=== PATIENT | male | born 1995 | race Caucasian/White ===

== ENCOUNTER 2018-03-02 20:51 | Emergency (ER) | payer OTHER ==
[~2018-03-02 20:51] MED LIST: CETI10 PO; OMPR20CCR; OXYC-360 PO
[2018-03-02 21:17] VITALS: BP 149/79; PULSE 83; RESP 16; TEMP 97.8; O2SAT 100
--- NOTE | 2018-03-02 23:11 | PD ---
HPI Chief Complaint: Injury Time Seen by Provider: 22:54 Travel History International Travel<30 days: No Contact w/Intl Traveler<30days: No Traveled to known affect area: No History of Present Illness HPI Patient is a 22 year old male (right hand dominant) who presents to the ER with c/o of right hand pain. Patient reports that he punched a box today around 6pm as he was angry, reports that the box was full of porcelain. Reports "I think i broke my hand." Patient with no other c/o. PFSH Past Medical History ADHD: Yes Autoimmune Disease: No Cardiovascular Problems: No Developmental Delay: No Diminished Hearing: No Gastrointestinal Disorders: Yes (pyloric stenosis) Genitourinary: No Musculoskeletal: No Neurologic: Yes (ADHD) Psychiatric: No Respiratory: No Immunizations Current: Yes Seizures: Yes Past Surgical History Abdominal Surgery: Yes (pyloric stenosis) Cardiac Surgery: No Ear Surgery: No Endocrine Surgery: No Eye Surgery: No Genitourinary Surgery: No Gynecologic Surgery: No Neurologic Surgery: No Oral Surgery: No Thoracic Surgery: No Other Surgery: Yes (PYLORIC STENOSIS, BROKEN BONES L/R ARM ) Social History Alcohol Use: Yes Tobacco Use: Yes Substance Use: Yes (MARIJUANA ) Allergies-Medications (Allergen,Severity, Reaction): Coded Allergies: amoxicillin (Unverified Allergy, Severe, 05/02/17) erythromycin base (Unverified Allergy, Severe, 05/02/17) Reported Meds & Prescriptions Reported Meds & Active Scripts Active Reported Percocet (Oxycodone/Acetaminophen) 5 Mg/325 Mg Tab 1 Tab PO Q4HPRN FOR PAIN Prilosec 20 Mg Cap (Omeprazole) 20 Mg Capcr 20 Mg .XX Zyrtec 10 Mg Tab (Cetirizine HCl) 10 Mg Tab 10 Mg PO DAILY Review of Systems General / Constitutional: No: Fever Eyes: No: Visual changes HENT: No: Headaches Cardiovascular: No: Chest Pain or Discomfort Respiratory: No: Shortness of Breath Gastrointestinal: No: Abdominal Pain Genitourinary: No: Dysuria Musculoskeletal: Positive: Pain (right ulnar aspect of hand) Skin: No Rash Neurologic: No: Weakness Psychiatric: No: Depression Endocrine: No: Polydipsia Hematologic/Lymphatic: No: Easy Bruising Physical Exam Narrative GENERAL: Well-nourished, well-developed patient. SKIN: Focused skin assessment warm/dry. HEAD: Normocephalic. EYES: No scleral icterus. No injection or drainage. NECK: Supple, trachea midline. No JVD or lymphadenopathy. CARDIOVASCULAR: Regular rate and rhythm without murmurs, gallops, or rubs. RESPIRATORY: Breath sounds equal bilaterally. No accessory muscle use. GASTROINTESTINAL: Abdomen soft, non-tender, nondistended. MUSCULOSKELETAL: No cyanosis, or edema. RUE: patient with pain to ulnar aspect of right hand, no scaphoid tenderness, normal rom to all digits as well as to wrist, pulses intact, neurovascularly intact LUE: normal exam BACK: Nontender without obvious deformity. No CVA tenderness. Data Data Last Documented VS Vital Signs Date Time Temp Pulse Resp B/P (MAP) Pulse Ox O2 Delivery O2 Flow Rate FiO2 03/02/18 21:17 97.8 83 16 149/79 (102) 100 Orders Orders Hand, Complete ([id number]) (03/02/18 ) Ice/Cold Pack (03/02/18 23:01) Ibuprofen (Motrin) (03/02/18 23:15) Splinting (03/02/18 ) MDM Medical Decision Making Medical Screen Exam Complete: Yes Emergency Medical Condition: Yes Medical Record Reviewed: Yes Interpretation(s) Vital Signs Date Time Temp Pulse Resp B/P (MAP) Pulse Ox O2 Delivery O2 Flow Rate FiO2 03/02/18 21:17 97.8 83 16 149/79 (102) 100 Differential Diagnosis metacarpel fx Narrative Course Last Impressions Hand X-Ray 03/02/18 0000 Signed Impressions: CONCLUSION: Displaced fracture fifth metacarpal patient with displaced fracture to the mid shaft of 5th metacarpel bone. Patient was placed in splint. He will follow up with orthopedic surgery and will return to ER as needed Diagnosis Primary Impression: Fracture, metacarpal Qualified Codes: S62.306A - Unspecified fracture of fifth metacarpal bone, right hand, initial encounter for closed fracture Referrals: Aaron Walker MD Patient Instructions: General Instructions Additional Instructions: Please provide patient with a copy of his study at discharge Please follow up with orthopedic surgery in 1 week Return to the ER if symptoms worsen or progress Return to the ER as needed Scripts Ibuprofen (Ibuprofen) 600 Mg Tab 600 MG PO Q6H Y for Pain/Inflammation, #40 TAB 0 Refills Prov: Chantal Ivy DO 03/02/18 Disposition: 01 DISCHARGE HOME Condition: Stable Chantal Ivy DO Mar 02, 2018 23:11
[2018-03-02] MEDS ORDERED: IBUPROFEN 600 MG TAB PO ONE (23:15)
--- NOTE | 2018-03-02 23:25 | RADRPT ---
EXAM DATE: 03/02/2018 11:17 PM EDT AGE/SEX: 22 years / Male INDICATIONS: Right 5th metacarpal pain post punching injury today CLINICAL DATA: This is the patient's initial encounter. Patient reports that signs and symptoms have been present for 1 day and indicates a pain score of 8/10. MEDICAL/SURGICAL HISTORY: None. None. COMPARISON: No prior exams available for comparison. FINDINGS: Views of the right hand demonstrates displaced fracture mid shaft of the fifth metacarpal with adjace nt soft tissue swelling. Slight dorsal apex angulation. No other fractures. CONCLUSION: Displaced fracture fifth metacarpal Electronically signed by: Yonis Casanova MD 03/02/2018 11:23 PM EDT
[2018-03-02] MEDS ORDERED: IBUP-232 PO (23:40)
== END 2018-03-03 00:17 | disposition home or self-care (01) ==
LOC: NEPD 20:51
DX: S62.326A Displaced fracture of shaft of fifth metacarpal bone, right hand, initial encounter for closed fracture (principal); W22.8XXA Striking against or struck by other objects, initial encounter
CPT/HCPCS: 29125; 73130